=== PATIENT | female | born 1950 | race African-American/Black ===

== ENCOUNTER 2020-02-08 10:19 | Outpatient (CLI) | payer MEDICARE, MEDICAID, SELFPAY ==
[2020-02-08 10:51] LABS: Basophils Absolute Auto 0.1 K/mm3 (0.0-0.1); Basophils Percent Auto 0.8 % (0.2-1.2); Eosinophils Absolute Auto 0.1 K/mm3 (0-0.3); Eosinophils Percent Auto 1.1 % (0-4.4); Hematocrit 38.9 % (37.0-47.0); Hemoglobin 12.4 g/dL (12.0-15.0); Immature Granulocyte Absolute 0.02 K/mm3 (0.00-0.031); Immature Granulocyte Percent A 0.3 % (0-0.5); Lymphocytes Absolute Auto 2.33 K/mm3 (0.9-3.2); Lymphocytes Percent Auto 31.3 % (18.3-44.2); Mean Corpuscular HGB Conc 31.9 g/dl (32-36); Mean Corpuscular Volume 72.3 fl (80-100); Mean Platelet Volume 9.3 fl (7.4-10.4); Monocytes Absolute Auto 0.8 K/mm3 (0.1-0.6); Monocytes Percent Auto 11.1 % (2.6-8.5); Neutrophils Absolute Auto 4.1 K/mm3 (1.3-6.7); Neutrophils Percent Auto 55.4 % (45.5-73.1); Platelet Count Result 188 k/mm3 (150-375); Red Blood Count 5.38 M/mm3 (4.2-5.4); Red Cell Distribution Width 14.6 % (11.5-14.5); White Blood Count 7.5 K/mm3 (4.5-10.0)
[2020-02-08 11:07] LABS: Alanine Aminotransferase 28 U/L (4-35); Albumin Level 4.4 g/dL (3.5-5.1); Alkaline Phosphatase 68 U/L (38-126); Aspartate Amino Transferase 32 U/L (14-36); Bilirubin,Total 0.4 mg/dL (0.2-1.3); Blood Urea Nitrogen 16 mg/dL (7-17); Calcium 9.2 mg/dL (8.4-10.2); Carbon Dioxide 33 mmol/L (22-30); Chloride 99 mmol/L (98-107); Cholesterol 192 mg/dL (0-200); Estimated Glomerular Filt Rate > 60; Glucose 93 mg/dL (65-105); HDL Direct 48 mg/dL; Potassium 3.6 mmol/L (3.4-5.0); Sodium 139 mmol/L (137-145); Triglycerides 115 mg/dL (<150)
[2020-02-08 11:18] LABS: LDL Cholesterol Direct 102 mg/dL
== END 2020-02-08 10:20 | disposition home or self-care (01) ==
PROVIDERS: PCP Emergency Medicine; Visit Provider Emergency Medicine
DX: D50.9 Iron deficiency anemia, unspecified (principal); E78.5 Hyperlipidemia, unspecified
CPT/HCPCS: 36415; 80053; 80061; 85025

== ENCOUNTER 2020-11-25 10:48 | Outpatient (CLI) | payer MEDICARE, MEDICAID, SELFPAY ==
[2020-11-25 11:34] LABS: Alanine Aminotransferase 35 U/L (4-35); Albumin Level 4.3 g/dL (3.5-5.1); Alkaline Phosphatase 63 U/L (38-126); Anion Gap 7 mmol/L (8-16); Aspartate Amino Transferase 32 U/L (14-36); Bilirubin,Total 0.5 mg/dL (0.2-1.3); Blood Urea Nitrogen 20 mg/dL (7-17); Calcium 9.4 mg/dL (8.4-10.2); Carbon Dioxide 33 mmol/L (22-30); Chloride 100 mmol/L (98-107); Cholesterol 169 mg/dL (0-200); Estimated Glomerular Filt Rate > 60; Glucose 95 mg/dL (65-105); HDL Direct 51 mg/dL; Potassium 4.1 mmol/L (3.4-5.0); Sodium 140 mmol/L (137-145); Triglycerides 105 mg/dL (<150)
[2020-11-25 11:45] LABS: LDL Cholesterol Direct 88 mg/dL
== END 2020-11-25 10:49 | disposition home or self-care (01) ==
LOC: ANHLAB 10:53
PROVIDERS: PCP Emergency Medicine; Visit Provider Emergency Medicine
DX: E78.5 Hyperlipidemia, unspecified (principal)
CPT/HCPCS: 36415; 80053; 80061

== ENCOUNTER 2020-12-26 13:39 | Outpatient (CLI) | payer MEDICARE, MEDICAID, SELFPAY ==
--- NOTE | ~2020-12-26 | DEXA_ITS ---
Bone Density Report Name: Michelle Liao Age: 70 Sex: Female Ethnicity: Black Date of : 1950 Indication: osteopenia; height loss; hysterectomy; rheumatoid arthritis; postmenopausal Referring Provider: WINTER KAPLAN Study: Bone densitometry was performed. Exam Date: December 26, 2020 Accession number: [id number] Bone Density: Region BMD T-score Z-score Classification AP Spine (L1-L4) 1.007 -0.4 1.0 Normal Femoral Neck (Left) 0.626 -2.0 -0.8 Osteopenia Total Hip (Left) 0.801 -1.2 -0.3 Osteopenia Total Hip Bilateral Avg 0.795 -1.3 -0.4 Osteopenia Femoral Neck (Right) 0.671 -1.6 -0.5 Osteopenia Total Hip (Right) 0.787 -1.3 -0.4 Osteopenia World Health Organization criteria for BMD impression classify patients as: Normal (T-score at or above -1.0), Osteopenia (T-score between -1.0 and -2.5), or Osteoporosis (T-score at or below -2.5). 10-year Fracture Risk(1): Major Osteoporotic Fracture 6.6% Hip Fracture 1.3% Reported Risk Factors: [place] (Black), Neck BMD=0.626, BMI=29.5, rheumatoid arthritis (1) FRAX(R) Version 3.08. Fracture probability calculated for an untreated patient. Fracture probability may be lower if the patient has received treatment. Previous Exams: Region Exam Age BMD T-score BMD Change BMD Change Date g/cm2 vs Baseline vs Previous AP Spine(L1-L4) 12/26/2020 70 1.007 -0.4 -0.008(-0.7%)# -0.011(-1.1%) 09/29/2015 65 1.018 -0.3 0.004(0.4%)# -0.004(-0.4%)# 09/09/2011 61 1.022 -0.2 0.008(0.8%) 0.021(2.1%) 05/08/2009 58 1.001 -0.4 -0.013(-1.3%) -0.013(-1.3%) 11/02/2005 55 1.014 -0.3 Total Hip(Left) 12/26/2020 70 0.801 -1.2 0.000(0.1%)# -0.080(-9.1%)* 10/21/2017 67 0.881 -0.5 0.081(10.1%)# 0.053(6.4%)* 09/29/2015 65 0.828 -0.9 0.028(3.5%)# 0.020(2.5%)# 09/09/2011 61 0.808 -1.1 0.008(1.0%) -0.017(-2.1%) 05/08/2009 58 0.825 -1.0 0.025(3.1%) 0.025(3.1%) 11/02/2005 55 0.800 -1.2 Total Hip(Right) 12/26/2020 70 0.787 -1.3 0.006(0.7%)# -0.024(-2.9%) 10/21/2017 67 0.810 -1.1 0.029(3.8%)# 0.034(4.4%)* 09/29/2015 65 0.776 -1.4 -0.005(-0.6%)# 0.004(0.5%)# 09/09/2011 61 0.772 -1.4 -0.009(-1.2%) 0.012(1.6%) 05/08/2009 58 0.760 -1.5 -0.021(-2.7%) -0.021(-2.7%) 11/02/2005 55 0.781 -1.3 *Denotes significance at 95% confidence level, LSC for AP Spine = 0.022 g/cm2, LSC for Total Hip = 0.027 g/cm2 Clinical Information Provided by Patient: Has rhe
--- NOTE | ~2020-12-26 | MM_ITS ---
EXAMINATION: MM screening [facility] BI w cherie HISTORY: Screening mammogram TECHNIQUE: Craniocaudal and mediolateral oblique 3-D tomosynthesis images were obtained and synthetic 2-D images were generated. CAD analysis was submitted and interpreted. COMPARISON: 11/02/2019, 10/24/2018, 10/03/2017 BREAST PARENCHYMAL COMPOSITION: There are scattered areas of fibroglandular density. FINDINGS: There is no evidence of suspicious mass, calcification, or architectural distortion to sugg est malignancy in either breast. There has been no suspicious interval change. IMPRESSION: 1. No mammographic evidence of malignancy. 2. Recommend routine screening mammography in one year. BI-RADS Category 1: Negative Reviewed, dictated and finalized at location A. 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
== END 2020-12-26 13:40 | disposition home or self-care (01) ==
LOC: ANHIMG 13:42
PROVIDERS: PCP Emergency Medicine; Visit Provider Emergency Medicine
DX: M81.0 Age-related osteoporosis without current pathological fracture (principal); Z12.31 Encounter for screening mammogram for malignant neoplasm of breast; M85.852 Other specified disorders of bone density and structure, left thigh; M85.851 Other specified disorders of bone density and structure, right thigh
CPT/HCPCS: 77063; 77067; 77080

== ENCOUNTER 2021-03-20 10:19 | Outpatient (CLI) | payer MEDICARE, MEDICAID, SELFPAY ==
[2021-03-20 11:01] LABS: Alanine Aminotransferase 29 U/L (4-35); Albumin Level 4.6 g/dL (3.5-5.1); Alkaline Phosphatase 53 U/L (38-126); Anion Gap 6 mmol/L (8-16); Aspartate Amino Transferase 34 U/L (14-36); Bilirubin,Total 0.4 mg/dL (0.2-1.3); Blood Urea Nitrogen 25 mg/dL (7-17); Calcium 9.1 mg/dL (8.4-10.2); Carbon Dioxide 33 mmol/L (22-30); Chloride 105 mmol/L (98-107); Cholesterol 167 mg/dL (0-200); Estimated Glomerular Filt Rate > 60; Glucose 98 mg/dL (65-105); HDL Direct 62 mg/dL; Potassium 3.9 mmol/L (3.4-5.0); Sodium 144 mmol/L (137-145); Triglycerides 67 mg/dL (<150)
[2021-03-20 11:12] LABS: LDL Cholesterol Direct 83 mg/dL
== END 2021-03-20 10:20 | disposition home or self-care (01) ==
LOC: ANHLAB 10:24
PROVIDERS: PCP Emergency Medicine; Visit Provider Emergency Medicine
DX: E78.2 Mixed hyperlipidemia (principal)
CPT/HCPCS: 36415; 80053; 80061

== ENCOUNTER 2021-08-20 10:06 | Outpatient (CLI) | payer MEDICARE, MEDICAID, SELFPAY ==
[2021-08-20 11:01] LABS: Alanine Aminotransferase 29 U/L (4-35); Albumin Level 4.7 g/dL (3.5-5.1); Alkaline Phosphatase 71 U/L (38-126); Anion Gap 5 mmol/L (8-16); Aspartate Amino Transferase 33 U/L (14-36); Bilirubin,Total 0.4 mg/dL (0.2-1.3); Blood Urea Nitrogen 15 mg/dL (7-17); Calcium 9.4 mg/dL (8.4-10.2); Carbon Dioxide 35 mmol/L (22-30); Chloride 102 mmol/L (98-107); Cholesterol 218 mg/dL (0-200); Estimated Glomerular Filt Rate > 60; Glucose 102 mg/dL (65-110); HDL Direct 64 mg/dL; Potassium 4.2 mmol/L (3.4-5.0); Sodium 142 mmol/L (137-145); Triglycerides 137 mg/dL (<150)
[2021-08-20 11:13] LABS: LDL Cholesterol Direct 114 mg/dL
== END 2021-08-20 10:07 | disposition home or self-care (01) ==
LOC: ANHLAB 10:09
PROVIDERS: PCP Emergency Medicine; Visit Provider Emergency Medicine
DX: E78.2 Mixed hyperlipidemia (principal)
CPT/HCPCS: 36415; 80053; 80061

== ENCOUNTER 2021-11-25 10:34 | Outpatient (CLI) | payer MEDICARE, MEDICAID, SELFPAY ==
[2021-11-25 11:25] LABS: Alanine Aminotransferase 29 U/L (4-35); Albumin Level 4.5 g/dL (3.5-5.1); Alkaline Phosphatase 65 U/L (38-126); Anion Gap 7 mmol/L (8-16); Aspartate Amino Transferase 31 U/L (14-36); Bilirubin,Total 0.6 mg/dL (0.2-1.3); Blood Urea Nitrogen 17 mg/dL (7-17); Carbon Dioxide 34 mmol/L (22-30); Chloride 102 mmol/L (98-107); Cholesterol 233 mg/dL (0-200); Estimated Glomerular Filt Rate > 60; Glucose 103 mg/dL (65-110); HDL Direct 64 mg/dL; Potassium 3.4 mmol/L (3.4-5.0); Sodium 143 mmol/L (137-145); Triglycerides 135 mg/dL (<150)
[2021-11-25 11:36] LABS: LDL Cholesterol Direct 126 mg/dL
== END 2021-11-25 10:35 | disposition home or self-care (01) ==
PROVIDERS: PCP Emergency Medicine; Visit Provider Emergency Medicine
DX: E78.2 Mixed hyperlipidemia (principal)
CPT/HCPCS: 36415; 80053; 80061

== ENCOUNTER 2022-02-24 13:41 | Outpatient (CLI) | payer MEDICARE, MEDICAID, SELFPAY ==
[2022-02-24 14:14] LABS: Alanine Aminotransferase 30 U/L (4-35); Albumin Level 4.5 g/dL (3.5-5.1); Alkaline Phosphatase 69 U/L (38-126); Anion Gap 7 mmol/L (8-16); Aspartate Amino Transferase 37 U/L (14-36); Bilirubin,Total 0.5 mg/dL (0.2-1.3); Blood Urea Nitrogen 26 mg/dL (7-17); Calcium 9.3 mg/dL (8.4-10.2); Carbon Dioxide 29 mmol/L (22-30); Chloride 104 mmol/L (98-107); Cholesterol 286 mg/dL (0-200); Estimated Glomerular Filt Rate > 60; Glucose 94 mg/dL (65-110); HDL Direct 51 mg/dL; Potassium 4.1 mmol/L (3.4-5.0); Sodium 140 mmol/L (137-145); Triglycerides 104 mg/dL (<150)
[2022-02-24 14:25] LABS: LDL Cholesterol Direct 166 mg/dL
[2022-02-27 13:04] LABS: Vitamin D 1,25 (OH)2 Total 73 pg/mL (18-72); Vitamin D2 1,25 (OH)2 <8 pg/mL; Vitamin D3 1,25 (OH)2 73 pg/mL
== END 2022-02-24 13:42 | disposition home or self-care (01) ==
LOC: ANHLAB 13:44
PROVIDERS: PCP Emergency Medicine; Visit Provider Emergency Medicine
DX: E78.2 Mixed hyperlipidemia (principal); E55.9 Vitamin D deficiency, unspecified
CPT/HCPCS: 36415; 80053; 80061; 82652

== ENCOUNTER 2022-03-05 10:28 | Outpatient (CLI) | payer MEDICARE, MEDICAID, SELFPAY ==
--- NOTE | ~2022-03-05 | MM_ITS ---
EXAMINATION: MM screening [facility] BI w cherie HISTORY: Screening TECHNIQUE: Craniocaudal and mediolateral oblique 3-D tomosynthesis images were obtained and synthetic 2-D images were generated. CAD analysis was submitted and interpreted. COMPARISON: Comparison to multiple prior studies sequentially, with oldest reviewed study dated 09/21. BREAST PARENCHYMAL COMPOSITION: There are scattered areas of fibroglandular density. FINDINGS: There is no evidence of suspicious mass, calcification, or architectural distortion to sugg est malignancy in either breast. There has been no suspicious interval change. IMPRESSION: 1. No mammographic evidence of malignancy. 2. Recommend routine screening mammography in one year. BI-RADS Category 1: Negative Reviewed, dictated and finalized at location A.
== END 2022-03-05 10:29 | disposition home or self-care (01) ==
LOC: ANHIMG 10:30
PROVIDERS: PCP Emergency Medicine; Visit Provider Emergency Medicine
DX: Z12.31 Encounter for screening mammogram for malignant neoplasm of breast (principal)
CPT/HCPCS: 77063; 77067

== ENCOUNTER 2022-12-13 09:46 | Outpatient (CLI) | payer MEDICARE, MEDICAID, SELFPAY ==
[2022-12-13 10:25] LABS: Alanine Aminotransferase 35 U/L (6-35); Albumin Level 4.3 g/dL (3.5-5.1); Alkaline Phosphatase 65 U/L (38-126); Anion Gap 6 mmol/L (8-16); Aspartate Amino Transferase 35 U/L (14-36); Bilirubin,Total 0.5 mg/dL (0.2-1.3); Blood Urea Nitrogen 20 mg/dL (7-17); Carbon Dioxide 31 mmol/L (22-30); Chloride 105 mmol/L (98-107); Cholesterol 165 mg/dL (0-200); Estimated Glomerular Filt Rate > 60; Glucose 96 mg/dL (65-110); HDL Direct 58 mg/dL; Sodium 142 mmol/L (137-145); Triglycerides 101 mg/dL (<150)
[2022-12-13 10:37] LABS: LDL Cholesterol Direct 69 mg/dL
[2022-12-17 16:30] LABS: Vitamin D 1,25 (OH)2 Total 89 pg/mL (18-72); Vitamin D2 1,25 (OH)2 <8 pg/mL; Vitamin D3 1,25 (OH)2 89 pg/mL
== END 2022-12-13 09:47 | disposition home or self-care (01) ==
LOC: ANHLAB 09:48
PROVIDERS: PCP Emergency Medicine; Visit Provider Emergency Medicine
DX: E78.5 Hyperlipidemia, unspecified (principal); E55.9 Vitamin D deficiency, unspecified
CPT/HCPCS: 36415; 80053; 80061; 82652

== ENCOUNTER 2023-03-14 10:09 | Outpatient (CLI) | payer MEDICARE, MEDICAID, SELFPAY ==
[2023-03-14 10:45] LABS: Alanine Aminotransferase 32 U/L (6-35); Alkaline Phosphatase 59 U/L (38-126); Anion Gap 5 mmol/L (8-16); Aspartate Amino Transferase 33 U/L (14-36); Bilirubin,Total 0.7 mg/dL (0.2-1.3); Blood Urea Nitrogen 20 mg/dL (7-17); Calcium 9.4 mg/dL (8.4-10.2); Carbon Dioxide 34 mmol/L (22-30); Chloride 101 mmol/L (98-107); Cholesterol 185 mg/dL (0-200); Estimated Glomerular Filt Rate > 60; Glucose 87 mg/dL (65-110); HDL Direct 65 mg/dL; Potassium 3.5 mmol/L (3.4-5.0); Sodium 140 mmol/L (137-145); Triglycerides 129 mg/dL (<150)
[2023-03-14 10:56] LABS: LDL Cholesterol Direct 77 mg/dL
[2023-03-18 16:52] LABS: Vitamin D 1,25 (OH)2 Total 75 pg/mL (18-72); Vitamin D2 1,25 (OH)2 <8 pg/mL; Vitamin D3 1,25 (OH)2 75 pg/mL
== END 2023-03-14 10:10 | disposition home or self-care (01) ==
PROVIDERS: PCP Emergency Medicine; Visit Provider Emergency Medicine
DX: E55.9 Vitamin D deficiency, unspecified (principal); E78.5 Hyperlipidemia, unspecified; E11.9 Type 2 diabetes mellitus without complications
CPT/HCPCS: 36415; 80053; 80061; 82652

== ENCOUNTER 2023-05-05 09:53 | Outpatient (CLI) | payer MEDICARE, MEDICAID, SELFPAY ==
--- NOTE | ~2023-05-05 | MM_ITS ---
EXAMINATION: MM screening [facility] w cherie HISTORY: Screening mammogram TECHNIQUE: Craniocaudal and mediolateral oblique 3-D tomosynthesis images were obtained and synthetic 2-D images were generated. CAD analysis was submitted and interpreted. COMPARISON: March 05, 2022, December 26, 2020, November 02, 2019 bilateral screening mammogram examina tions BREAST PARENCHYMAL COMPOSITION: There are scattered areas of fibroglandular density. FINDINGS: There is no evidence of suspicious mass, calcification, or architectural distortion to sugg est malignancy in either breast. There has been no suspicious interval change. IMPRESSION: 1. No mammographic evidence of malignancy. 2. Recommend routine screening mammography in one year. BI-RADS Category 1: Negative Reviewed, dictated and finalized at location A.
== END 2023-05-05 09:54 | disposition home or self-care (01) ==
LOC: ANHIMG 09:53
PROVIDERS: PCP Emergency Medicine; Visit Provider Emergency Medicine
DX: Z12.31 Encounter for screening mammogram for malignant neoplasm of breast (principal)
CPT/HCPCS: 77063; 77067

== ENCOUNTER 2023-06-15 10:01 | Outpatient (CLI) | payer MEDICARE, MEDICAID, SELFPAY ==
[2023-06-15 10:37] LABS: Alanine Aminotransferase 35 U/L (6-35); Albumin Level 4.2 g/dL (3.5-5.1); Alkaline Phosphatase 44 U/L (38-126); Anion Gap 6 mmol/L (8-16); Aspartate Amino Transferase 33 U/L (14-36); Bilirubin,Total 0.4 mg/dL (0.2-1.3); Blood Urea Nitrogen 21 mg/dL (7-17); Calcium 8.9 mg/dL (8.4-10.2); Carbon Dioxide 33 mmol/L (22-30); Chloride 104 mmol/L (98-107); Cholesterol 159 mg/dL (0-200); Estimated Glomerular Filt Rate > 60; Glucose 98 mg/dL (65-110); HDL Direct 57 mg/dL; Potassium 3.9 mmol/L (3.4-5.0); Sodium 143 mmol/L (137-145); Triglycerides 97 mg/dL (<150)
[2023-06-15 10:48] LABS: LDL Cholesterol Direct 70 mg/dL
[2023-06-18 13:06] LABS: Vitamin D 1,25 (OH)2 Total 67 pg/mL (18-72); Vitamin D2 1,25 (OH)2 <8 pg/mL; Vitamin D3 1,25 (OH)2 67 pg/mL
== END 2023-06-15 10:02 | disposition home or self-care (01) ==
PROVIDERS: PCP Emergency Medicine; Visit Provider Emergency Medicine
DX: E78.5 Hyperlipidemia, unspecified (principal); E55.9 Vitamin D deficiency, unspecified
CPT/HCPCS: 36415; 80053; 80061; 82652

== ENCOUNTER 2023-09-09 09:39 | Outpatient (CLI) | payer MEDICARE, MEDICAID, SELFPAY ==
--- NOTE | ~2023-09-09 | DEXA_ITS ---
Bone Density Report Name: JASON SCHULZ Age: 73 Sex: Female Ethnicity: Black Date of : 1950 Indication: osteopenia; height loss; hysterectomy; postmenopausal Referring Provider: WINTER KAPLAN Study: Bone densitometry was performed. Exam Date: September 09, 2023 Accession number: [id number] Bone Density: Region BMD T-score Z-score Classification AP Spine(L1-L4) 1.069 0.2 1.8 Normal Femoral Neck (Left) 0.675 -1.6 -0.4 Osteopenia Total Hip (Left) 0.783 -1.3 -0.4 Osteopenia Femoral Neck (Right) 0.622 -2.0 -0.8 Osteopenia Total Hip (Right) 0.705 -1.9 -0.9 Osteopenia Total Hip Mean 0.744 -1.6 -0.7 Osteopenia World Health Organization criteria for BMD impression classify patients as: Normal (T-score at or above -1.0), Osteopenia (T-score between -1.0 and -2.5), or Osteoporosis (T-score at or below -2.5). 10-year Fracture Risk(1): Major Osteoporotic Fracture 5.8% Hip Fracture 1.3% Reported Risk Factors: [place] ([place]), Neck BMD=0.622, BMI=27.0 (1) FRAX(R) Version 3.08. Fracture probability calculated for an untreated patient. Fracture probability may be lower if the patient has received treatment. Previous Exams: Region Exam Age BMD T-score BMD Change BMD Change Date g/cm2 vs Baseline vs Previous AP Spine (L1-L4) 09/09/2023 73 1.069 0.2 0.051 (5.0%)* 0.062 (6.2%)* 12/26/2020 70 1.007 -0.4 -0.011 (-1.1%) -0.011 (-1.1%) 09/29/2015 65 1.018 -0.3 Total Hip(Left) 09/09/2023 73 0.783 -1.3 -0.045 (-5.4%) -0.017 (-2.1%) 12/26/2020 70 0.801 -1.2 -0.028 (-3.3%) -0.080 (-9.1%) 10/21/2017 67 0.881 -0.5 0.053 (6.4%)* 0.053 (6.4%)* 09/29/2015 65 0.828 -0.9 Total Hip(Right) 09/09/2023 73 0.705 -1.9 -0.071 (-9.1%) -0.081 (-10.3% 12/26/2020 70 0.787 -1.3 0.011 (1.4%) -0.024 (-2.9%) 10/21/2017 67 0.810 -1.1 0.034 (4.4%)* 0.034 (4.4%)* 09/29/2015 65 0.776 -1.4 *Denotes significance at 95% confidence level, LSC for AP Spine = 0.022 g/cm2, LSC for Total Hip = 0.027 g/cm2 Clinical Information Provided by Patient: Has used the following medications: Vitamin D, Calcium Has the following medical conditions: Hysterectomy Patient maximum height was 67 Menopause Age: 38 No regular weight bearing exercise Drinks caffeinated beverages Onset of menses at age 13 Number of children 2 Impression: The patient has low bone mass, based on the Right Femoral Neck T-score.
== END 2023-09-09 09:40 | disposition home or self-care (01) ==
LOC: ANHIMG 09:40
PROVIDERS: PCP Emergency Medicine; Visit Provider Emergency Medicine
DX: Z78.0 Asymptomatic menopausal state (principal); M85.852 Other specified disorders of bone density and structure, left thigh; M85.851 Other specified disorders of bone density and structure, right thigh
CPT/HCPCS: 77080

== ENCOUNTER 2023-09-28 10:42 | Outpatient (CLI) | payer MEDICARE, MEDICAID, SELFPAY ==
[2023-09-28 12:07] LABS: Alanine Aminotransferase 37 U/L (6-35); Albumin Level 4.6 g/dL (3.5-5.1); Alkaline Phosphatase 54 U/L (38-126); Anion Gap 8 mmol/L (8-16); Aspartate Amino Transferase 29 U/L (14-36); Bilirubin,Total 0.6 mg/dL (0.2-1.3); Blood Urea Nitrogen 22 mg/dL (7-17); Calcium 9.4 mg/dL (8.4-10.2); Carbon Dioxide 31 mmol/L (22-30); Chloride 101 mmol/L (98-107); Cholesterol 161 mg/dL (0-200); Estimated Glomerular Filt Rate > 60; Glucose 92 mg/dL (65-110); HDL Direct 59 mg/dL; Potassium 3.9 mmol/L (3.4-5.0); Sodium 140 mmol/L (137-145); Triglycerides 87 mg/dL (<150)
[2023-09-28 12:17] LABS: LDL Cholesterol Direct 77 mg/dL
== END 2023-09-28 10:43 | disposition home or self-care (01) ==
PROVIDERS: PCP Emergency Medicine; Visit Provider Emergency Medicine
DX: E78.2 Mixed hyperlipidemia (principal); E55.9 Vitamin D deficiency, unspecified
CPT/HCPCS: 36415; 80053; 80061; 82306

== ENCOUNTER 2024-01-11 10:29 | Outpatient (CLI) | payer MEDICARE, MEDICAID, SELFPAY ==
[2024-01-11 10:59] LABS: Hemoglobin 13.3 g/dL (12.0-15.0); Mean Corpuscular HGB Conc 31.7 g/dl (32-36); Mean Corpuscular Hemoglobin 23.3 pg (26-34); Mean Corpuscular Volume 73.7 fl (80-100); Mean Platelet Volume 9.7 fl (7.4-10.4); Platelet Count Result 188 k/mm3 (150-375); White Blood Count 10.1 K/mm3 (4.5-10.0)
[2024-01-11 11:10] LABS: Alanine Aminotransferase 37 U/L (6-35); Albumin Level 4.8 g/dL (3.5-5.1); Alkaline Phosphatase 62 U/L (38-126); Anion Gap 8 mmol/L (8-16); Aspartate Amino Transferase 35 U/L (14-36); Bilirubin,Total 0.6 mg/dL (0.2-1.3); Blood Urea Nitrogen 25 mg/dL (7-17); Calcium 9.4 mg/dL (8.4-10.2); Carbon Dioxide 32 mmol/L (22-30); Chloride 99 mmol/L (98-107); Cholesterol 179 mg/dL (0-200); Estimated Glomerular Filt Rate > 60; Glucose 103 mg/dL (65-110); HDL Direct 65 mg/dL; Sodium 139 mmol/L (137-145); Triglycerides 114 mg/dL (<150)
[2024-01-11 11:21] LABS: LDL Cholesterol Direct 81 mg/dL
== END 2024-01-11 10:30 | disposition home or self-care (01) ==
PROVIDERS: PCP Emergency Medicine; Visit Provider Emergency Medicine
DX: E55.9 Vitamin D deficiency, unspecified (principal); E78.2 Mixed hyperlipidemia
CPT/HCPCS: 36415; 80053; 80061; 82306; 85027

== ENCOUNTER 2024-03-07 11:00 | Outpatient (RCR) | payer MEDICARE, MEDICAID, SELFPAY ==
--- NOTE | 2024-01-27 11:40 | OPREHPOC ---
Outpatient Therapy Plan of Care This is a Multidisciplinary Plan of Care that may contain components documented by all disciplines (PT, OT, and ST.) PT Problem 1 PT Problem #1 Knowledge Deficit PT Goal 1 Goal Pt to be independent with HEP Target Visit 8 PT Problem 2 PT Problem #2 Impaired Balance PT Goal 1 Goal Pt to be able to transition from sitting to standing without loosing her trunk stability and balance on the first try. Target Visit 8 PT Goal 2 Goal Pt to improve Tinetti score from 15/28 to 22/28. Target Visit 8 PT Problem 3 PT Problem #3 Impaired Strength PT Goal 1 Goal Pt to be able to preform a sit to stand without the use of her hands. Target Visit 8 PT Goal 2 Goal Pt to improve BLE strength to grossly 4/5. Target Visit 8 PT Problem 4 PT Problem #4 Impaired Gait PT Goal 1 Goal Pt to demonstrate clearance and increased step length of her L foot during gait. Target Visit 8 PT Goal 2 Goal Pt to improve 2 min walk distance from 140ft to 200ft. Target Visit 8 PT Problem 5 PT Problem #5 Impaired Functional Mobil PT Goal 1 Goal Pt to demonstrate floor to stand transfer IND, to recover from falls. Target Visit 8
--- NOTE | 2024-01-27 11:40 | PTOPEVAL1 ---
Assessment and note entered by Michelle Stokes, PT, DPT Evaluation Information Assessment Status Evaluation Diagnosis weakness Subjective Information Pt reports decreased mobility, she states she has been using a walker for multiple years and has switched to a standing rollator in the last year. Pt states in the past when she has fallen she cannot get up on her own. She has L sided weakness from a stroke multiple years ago but cannot recall exactly when. She states she had therapy in the past without much benefit. She states she lives in an independent living facility. Her most recent fall was in the last 3-6 months. Reported Pain Level Pain Score 4: Self Report Assessment PT Clinical Summary Michelle presents to therapy today with overall weakness on her left side following a stroke and multiple falls in the past. She demonstrates an ataxic gait and overall muscular weakness in her L leg, she demonstrates excessive L knee hyperextension. Since her stroke she has used a walker but within the last year has progressed to a standing rollator. She is unable to stand on her own without the assistance of her hands. Her score on the Tinetti and [address] her at an increased risk for falls. Skilled physical therapy intervention are indicated to address the deficits noted above, to improve strength, and to minimize fall risk. Plan of Care Interventions Electrical Stimulation,Gait Training,Neuro Re- education,Patient/Caregiver Educati,Therapeutic Activities,Therapeutic Exercise PT Services Indicated Yes Treatment Frequency and 2x/wk for 7 visits Duration These treatments will address the objective and functional deficits as defined above. The patient will be advanced safely and appropriately in order for the patient to progress towards his/her prior level of function. Additional exercises will be introduced and as well as a comprehensive home exercise program upon discharge, if needed, ?to ensure carryover of functional gains achieved in the clinic. This treatment plan has been reviewed and agreement upon by the patient.
--- NOTE | 2024-02-17 11:22 | PCPTNOTE ---
Patient did not show up for scheduled appointment this date.
--- NOTE | 2024-02-23 11:54 | PTOPPROG ---
Assessment and note entered by Michelle Stokes, PT, DPT Evaluation Information Assessment Status Progress Diagnosis weakness Subjective Information Pt states she is able to stand upright better than before therapy. She reports good compliance with her HEP. Assessment PT Clinical Summary Michelle presents to therapy today for her progress report following 6 visits of skilled therapy to treat her residual weakness on her left side following a stroke and multiple falls in the past. She demonstrates improved gross strength without a lot of progress in her functional movement assessments. Her score on the Tinetti and 5 times sit to stand times continue to place her at an increased risk for falls. Continuation of skilled physical therapy intervention are indicated to address the deficits noted above, to improve strength, and to minimize fall risk. Plan of Care Interventions Electrical Stimulation,Gait Training,Neuro Re- education,Patient/Caregiver Educati,Therapeutic Activities,Therapeutic Exercise PT Services Indicated Yes Treatment Frequency and 2x/wk for 8 visits Duration These treatments will address the objective and functional deficits as defined above. The patient will be advanced safely and appropriately in order for the patient to progress towards his/her prior level of function. Additional exercises will be introduced and as well as a comprehensive home exercise program upon discharge, if needed, ?to ensure carryover of functional gains achieved in the clinic. This treatment plan has been reviewed and agreement upon by the patient.
--- NOTE | 2024-02-29 16:51 | PCPTNOTE ---
Patient cancelled secondary to schedule conflict with Bandage Maker consult appointment.
--- NOTE | 2024-03-09 11:31 | PCPTNOTE ---
Patient did not show up for scheduled appointment this date. Called pt, unable to leave voicemail.
--- NOTE | 2024-03-12 11:19 | PCPTNOTE ---
Patient no show for today's appointment.
--- NOTE | 2024-03-21 11:31 | PCPTNOTE ---
Patient no show.
--- NOTE | 2024-04-04 10:03 | PTOPDC ---
Assessment and note entered by Puneet Lock, PT Evaluation Information Assessment Status Discharge - Pt Not Present Diagnosis weakness Subjective Information Patient called clinic to cancel remaining appointment. Did not want to schedule any more appointments at this time. Assessment PT Clinical Summary Patient will be discharged from therapy at this time due to cancellation policy and desire to not schedule any more appointments at this time. Patient was present for 06/02 scheduled appointments. Plan of Care PT Services Indicated D/C to HEP
== END 2024-04-04 10:38 | disposition home or self-care (01) ==
LOC: ANHGOSHPT 11:00
PROVIDERS: PCP Emergency Medicine; Visit Provider Emergency Medicine
DX: R53.1 Weakness (principal); Z86.79 Personal history of other diseases of the circulatory system
CPT/HCPCS: 97110; 97112; 97162; 97530; 99199

== ENCOUNTER 2024-04-17 10:32 | Outpatient (CLI) | payer MEDICARE, MEDICAID, SELFPAY ==
[2024-04-17 11:27] LABS: Hematocrit 38.8 % (37.0-47.0); Hemoglobin 12.6 g/dL (12.0-15.0); Mean Corpuscular HGB Conc 32.5 g/dl (32-36); Mean Corpuscular Volume 73.9 fl (80-100); Platelet Count Result 207 k/mm3 (150-375); Red Blood Count 5.25 M/mm3 (4.2-5.4); Red Cell Distribution Width 15.5 % (11.5-14.5); White Blood Count 9.1 K/mm3 (4.5-10.0)
[2024-04-17 12:00] LABS: Alanine Aminotransferase 33 U/L (6-35); Albumin Level 4.6 g/dL (3.5-5.1); Alkaline Phosphatase 52 U/L (38-126); Anion Gap 5 mmol/L (4-12); Aspartate Amino Transferase 31 U/L (14-36); Bilirubin,Total 0.6 mg/dL (0.2-1.3); Blood Urea Nitrogen 16 mg/dL (7-17); Calcium 9.5 mg/dL (8.4-10.2); Carbon Dioxide 34 mmol/L (22-30); Chloride 101 mmol/L (98-107); Cholesterol 171 mg/dL (0-200); Estimated Glomerular Filt Rate > 60; Glucose 98 mg/dL (65-110); HDL Direct 66 mg/dL; Sodium 140 mmol/L (137-145); Triglycerides 103 mg/dL (<150)
[2024-04-17 12:11] LABS: LDL Cholesterol Direct 86 mg/dL
[2024-04-17 12:13] LABS: Iron 155 ug/dL (37-170)
[2024-04-17 12:23] LABS: Percent Iron Saturation 60 % (20-50)
[2024-04-17 14:50] LABS: Vitamin D 25 Hydroxy 41.7 ng/mL
== END 2024-04-17 10:33 | disposition home or self-care (01) ==
PROVIDERS: PCP Emergency Medicine; Visit Provider Emergency Medicine
DX: E78.2 Mixed hyperlipidemia (principal); E55.9 Vitamin D deficiency, unspecified; E61.1 Iron deficiency; R53.83 Other fatigue
CPT/HCPCS: 36415; 80053; 80061; 82306; 83540; 83550; 85027

== ENCOUNTER 2024-08-08 16:23 | Outpatient (CLI) | payer MEDICARE, MEDICAID, SELFPAY ==
[2024-08-08 18:58] LABS: Alanine Aminotransferase 60 U/L (6-35); Albumin Level 4.5 g/dL (3.5-5.1); Alkaline Phosphatase 60 U/L (38-126); Anion Gap 9 mmol/L (4-12); Aspartate Amino Transferase 39 U/L (14-36); Bilirubin,Total 0.4 mg/dL (0.2-1.3); Blood Urea Nitrogen 20 mg/dL (7-17); Carbon Dioxide 31 mmol/L (22-30); Chloride 100 mmol/L (98-107); Cholesterol 156 mg/dL (0-200); Estimated Glomerular Filt Rate > 60; Glucose 92 mg/dL (65-110); HDL Direct 66 mg/dL; Potassium 3.8 mmol/L (3.4-5.0); Sodium 140 mmol/L (137-145); Triglycerides 80 mg/dL (<150)
[2024-08-08 19:05] LABS: Vitamin D 25 Hydroxy 39.5 ng/mL
[2024-08-08 19:08] LABS: LDL Cholesterol Direct 65 mg/dL
== END 2024-08-08 16:24 | disposition home or self-care (01) ==
LOC: ANHLAB 16:26
PROVIDERS: PCP Emergency Medicine; Visit Provider Emergency Medicine
DX: E78.2 Mixed hyperlipidemia (principal); I10 Essential (primary) hypertension; E55.9 Vitamin D deficiency, unspecified
CPT/HCPCS: 36415; 80053; 80061; 82306

== ENCOUNTER 2024-11-22 09:58 | Outpatient (CLI) | payer MEDICARE, MEDICAID, SELFPAY ==
[2024-11-22 10:51] LABS: Alanine Aminotransferase 40 U/L (6-35); Albumin Level 4.5 g/dL (3.5-5.1); Alkaline Phosphatase 61 U/L (38-126); Anion Gap 5 mmol/L (4-12); Aspartate Amino Transferase 31 U/L (14-36); Bilirubin,Total 0.6 mg/dL (0.2-1.3); Blood Urea Nitrogen 21 mg/dL (7-17); Calcium 9.5 mg/dL (8.4-10.2); Carbon Dioxide 32 mmol/L (22-30); Chloride 102 mmol/L (98-107); Cholesterol 174 mg/dL (0-200); Estimated Glomerular Filt Rate > 60; Glucose 86 mg/dL (65-110); HDL Direct 72 mg/dL; Potassium 3.5 mmol/L (3.4-5.0); Sodium 139 mmol/L (137-145); Triglycerides 89 mg/dL (<150)
[2024-11-22 11:22] LABS: LDL Cholesterol Direct 64 mg/dL
== END 2024-11-22 09:59 | disposition home or self-care (01) ==
PROVIDERS: PCP Emergency Medicine; Visit Provider Emergency Medicine
DX: E78.5 Hyperlipidemia, unspecified (principal); I10 Essential (primary) hypertension; E55.9 Vitamin D deficiency, unspecified
CPT/HCPCS: 36415; 80053; 80061; 82306

== ENCOUNTER 2025-02-13 15:45 | Outpatient (CLI) | payer MEDICARE, MEDICAID, SELFPAY ==
--- NOTE | ~2025-02-13 | MM_ITS ---
EXAMINATION: MM screening [facility] BI w cherie HISTORY: Screening TECHNIQUE: Craniocaudal and mediolateral oblique 3-D tomosynthesis images were obtained and synthetic 2-D images were generated. CAD analysis was submitted and interpreted. COMPARISON: 05/05/2023 and dating back to 11/02/2019 BREAST PARENCHYMAL COMPOSITION: There are scattered areas of fibroglandular density. FINDINGS: Punctate calcifications are detected bilaterally, stable and benign in appearance. Stable parenchymal pattern without suspicious microcalcifications, architectural distortion, discrete masses or significant asymmetry. IMPRESSION: 1. No mammographic evidence of malignancy. 2. Recommend routine screening mammography in one year. BI-RADS Category 2: Benign finding(s). Reviewed, dictated and finalized at location A.
--- OUTSIDE RECORDS SUMMARY | 2025-02-13 16:56 | XMS_ITS | Continuity of Care Document ---
Author Organization Formerly [facility] Address 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, [address] [place] [address] [address], [place], [place], [id number], tel:[phone] [facility] No Information 2 6-201 0 Yasmin Ramesh. [address] , [address], [place], [place], [facility], . tel:[phone] Office/outpat ient Visit, Est [facility], [address] [place] [address] [address], [place], [place], [id number], tel:[phone] [facility] No Information Sam-2 2-201 0 Yasmin Ramesh. [address] , [address], [place], [place], [facility], [place]. tel:[phone] Referring Provider: Domitila Buckner, [address], [place], [facility]. tel:[phone] [facility], [address] [place] [address] [address], [place], [place], [address], tel:[phone] [facility] No Information 2 3-201 0 Yasmin Ramesh. [address] , [address], [place], [facility], [place]. tel:[phone] Referring Provider: Domitila Buckner, [address], [place], [facility]. tel:[phone] [facility], [address] [place] [address] [address], [place], [place], [id number], [place] tel:[phone] [facility] No Information Dec-2 2-201 0 Yasmin Ramesh. [address] , [address], [place], [facility], [place]. tel:[phone] Referring Provider: Domitila Buckner, [address], [place], [facility]. tel:[phone] Office/outpat ient Visit, Est [facility], [address] [place] [address] [address], [place], [place], [id number], [place] tel:[phone] [facility] No Information 0200 9 Yasmin Ramesh. [address] , [address], [place], [facility], . tel:[phone] Referring Provider: Domitila Buckner, [address], [place], [facility]. tel:[phone] Office/outpat ient Visit, [facility], [address] [place] [address] [address], [place], [place], [address], tel:[phone] [facility] No Information 9 Yasmin Quinonez [address] [facility] , [address], [place], [facility], . tel:[phone] [facility], [address] [place] [address] [address], [place], [place], [address], tel:[phone] [facility] No Information 9 Yasmin Ramesh. [address] , [address], [place], [facility], [place]. tel:[phone] Referring Provider: Domitila Buckner, [address], [place], [facility]. tel:[phone] [facility], [address], [place], [place], [id number], [place] tel:[phone] [facility] No Information 0200 9 Yasmin Ramesh. [address] , [address], [place], [facility], [place]. tel:[phone] Referring Provider: Domitila Buckner, [address], [place], [facility]. tel:[phone] Office/outpat ient Visit, [facility], [address] [place] [address] [address], [place], [place], [id number], tel:[phone] [facility] No Information 8 Yasmin Ramesh. [address] , [address], [place], [facility], . tel:[phone] Referring Provider: Domitila Buckner, [address], [place], [facility]. tel:[phone] [facility], [address] [place] [address] [address], [place], [place], [address], tel:[phone] [facility] No Information 8 David Abdul. [facility] , [address], [place], [facility], . tel:[phone] Referring Provider: Franko Pleitez [facility] [address], [place], [facility]. tel:[phone] [facility], [address] [place] [address] [address], [place], [place], [address], tel:[phone] [facility] No Information 8 Yasmin Ramesh. [address] [facility] , [address], [place], [facility], . tel:[phone] Referring Provider: Domitila Buckner, [address], [place], [facility]. tel:[phone] [facility], [address] [place] [address] [address], [place], [place], [address], tel:[phone] [facility] No Information 8 Yasmin Ramesh. [address] , [address], [place], [facility], . tel:[phone] Family History Family Member Type Diagnosis Age At Onset No Information Payers Payer name Insurance type Covered republican ID Authorelidaa philippe(s) [place] [id number] Social History Type Description Quantity Date Captured [...]
== END 2025-02-13 15:46 | disposition home or self-care (01) ==
LOC: ANHIMG 15:46
PROVIDERS: PCP Emergency Medicine; Visit Provider Emergency Medicine
DX: Z12.31 Encounter for screening mammogram for malignant neoplasm of breast (principal)
CPT/HCPCS: 77063; 77067

== ENCOUNTER 2025-07-18 09:43 | Outpatient (CLI) | payer MEDICARE, MEDICAID, SELFPAY ==
--- OUTSIDE RECORDS SUMMARY | 2010-09-15 08:15 | XMS_ITS | Continuity of Care Document ---
Author Organization 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 Name Role Phone Domitila Hoffman Unavailable Unavailable Procedures Procedure Date Office/outpatient Visit, Est Optic Nerve Head Eval IPO Reduced 15% Office/outpatient Visit, Est Optic Nerve Head Eval IPO Reduced 15% Fundus Photography W/ Report Visual Field Examination-Professional Fe Visual Field Examination(s) Office/outpatient Visit, Est Optic Nerve Head Eval IPO Reduced 15% Corneal Pachymetry Aug- Office/outpatient Visit, Est Optic Nerve Head Eval IPO Reduced 15% Optic Nerve Topography-Professional Optic Nerve Topography-Professional Optic Nerve Topography Optic Nerve Topography Office/outpatient Visit, Est Optic Nerve Head Eval Fundus Photography W/ Report Visual Field Examination-Professional No Visual Field Examination-Technical Eye Exam, New Patient Refraction Optic Nerve Head Eval Advance Directives Directive Yes / No Effective Date File Name No Information Encounters Encounter Description Practice Location Reason(s) For Visit Diagnoses Date Provider Providers Copied on Encounter Office/outpat ient Visit, Est [facility], [address] [place] [address] [address], [place], [place], [id number], tel:[phone] [facility] No Information 2 6-201 0 Yasmin Ramesh. [address] , [address], [place], [place], [facility], . tel:[phone] Office/outpat ient Visit, Est [facility], [address] [place] [address] [address], [place], [place], [id number], tel:[phone] [facility] No Information Sam-2 2-201 0 Yasmin Ramesh. [address] , [address], [place], [place], [facility], [place]. tel:[phone] Referring Provider: Domitila Buckner, [address], [place], [place], [facility]. tel:[phone] [facility], [address] [place] [address] [address], [place], [place], [id number], tel:[phone] [facility] No Information 2 3-201 0 Yasmin Ramesh. [address] , [address], [place], [place], [facility], [place]. tel:[phone] Referring Provider: Domitila Buckner, [address], [place], [facility]. tel:[phone] [facility], [address] [place] [address] [address], [place], [place], [id number], [place] tel:[phone] [facility] No Information Dec-2 2-201 0 Yasmin Ramesh. [address] , [address], [place], [place], [facility], [place]. tel:[phone] Referring Provider: Domitila Buckner, [address], [place], [facility]. tel:[phone] Office/outpat ient Visit, Est [facility], [address] [place] [address] [address], [place], [place], [id number], [place] tel:[phone] [facility] No Information 0200 9 Yasmin Ramesh. [address] , [address], [place], [facility], . tel:[phone] Referring Provider: Domitila Buckner, [address], [place], [facility]. tel:[phone] Office/outpat ient Visit, [facility], [address] [place] [address] [address], [place], [place], [id number], tel:[phone] [facility] No Information 9 Yasmin Quinonez [address] [facility] [address] , [address], [place], [facility], . tel:[phone] [facility], [address] [place] [address] [address], [place], [place], [id number], tel:[phone] [facility] No Information 9 Yasmin Ramesh. [address] , [address], [place], [facility], [place]. tel:[phone] Referring Provider: Domitila Buckner, [address], [place], [facility]. tel:[phone] [facility], [address], [place], [place], [id number], [place] tel:[phone] [facility] No Information 0200 9 Yasmin Ramesh. [address] , [address], [place], [facility], [place]. tel:[phone] Referring Provider: Domitila Buckner, [address], [place], [facility]. tel:[phone] Office/outpat ient Visit, [facility], [address] [place] [address] [address], [place], [place], [id number], tel:[phone] [facility] No Information 8 Yasmin Ramesh. [address] , [address], [place], [facility], . tel:[phone] Referring Provider: Domitila Buckner, [address], [place], [facility]. tel:[phone] [facility], [address] [place] [address] [address], [place], [place], [id number], tel:[phone] [facility] No Information 8 David Abdul. [facility] , [address], [place], [facility], . tel:[phone] Referring Provider: [facility] Pleitez [facility] [address], [place], [facility]. tel:[phone] [facility], [address] [place] [address] [address], [place], [place], [id number], tel:[phone] [facility] No Information 8 Yasmin Ramesh. [address] [facility] , [address], [place], [facility], . tel:[phone] Referring Provider: Domitila Buckner, [address], [place], [facility]. tel:[phone] [facility], [address] [place] [address] [address], [place], [place], [id number], tel:[phone] [facility] No Information 8 Yasmin Ramesh. [address] , [address], [place], [facility], . tel:[phone] Family History Family Member Type Diagnosis Age At Onset No Information Payers Payer name Insurance type Covered libertarian ID Authorelidaa philippe(s) [place] [id number] Social History Type Description Quantity Date Captured Comments Sex Female Smoking Status No Information Chief Complaint And Reason For Visit No Information Reason For Referral Reason For Referral No Information History Of Present Illness Encounter Date Complaint History Of Prese nt Illness No Information Functional Status Date Functional Assessmen t No Information Instructions Date Instruction Additional Infor mation No Information Assessments Type Assessment Date No Information Patient Care Teams Name Effective Dates (start - stop) Status Members No Information
[2025-07-18 11:06] LABS: Alanine Aminotransferase 41 U/L (6-35); Albumin Level 4.4 g/dL (3.5-5.1); Alkaline Phosphatase 62 U/L (38-126); Anion Gap 8 mmol/L (4-12); Aspartate Amino Transferase 31 U/L (14-36); Bilirubin,Total 0.4 mg/dL (0.2-1.3); Blood Urea Nitrogen 25 mg/dL (7-17); Calcium 10.0 mg/dL (8.4-10.2); Carbon Dioxide 31 mmol/L (22-30); Chloride 101 mmol/L (98-107); Cholesterol 181 mg/dL (0-200); Estimated Glomerular Filt Rate > 60; Glucose 98 mg/dL (65-110); HDL Direct 76 mg/dL; Potassium 5.0 mmol/L (3.4-5.0); Sodium 140 mmol/L (137-145); Total Protein 7.4 g/dL (6.3-8.2); Triglycerides 101 mg/dL (<150)
== END 2025-07-18 09:44 | disposition home or self-care (01) ==
LOC: ANHLAB 09:44
PROVIDERS: PCP Emergency Medicine; Visit Provider Emergency Medicine
DX: E78.5 Hyperlipidemia, unspecified (principal); E55.9 Vitamin D deficiency, unspecified
CPT/HCPCS: 36415; 80053; 80061; 82306